=== PATIENT | female | born 1970 | race Caucasian/White ===

== ENCOUNTER → 2024-03-04 14:14 | Outpatient (REF) | payer BC, SELFPAY | LOC: WDC 14:14 | PROVIDERS: ATTENDING PHYSICIAN Family Medicine | DX: Z12.31 Encounter for screening mammogram for malignant neoplasm of breast (principal) | CPT/HCPCS: 77063; 77067 ==

== ENCOUNTER → 2024-07-14 13:38 | Outpatient (REF) | payer BC, SELFPAY | LOC: RCS 13:38 | PROVIDERS: ATTENDING PHYSICIAN Family Medicine | DX: G25.2 Other specified forms of tremor (principal) | CPT/HCPCS: 93005 ==

== ENCOUNTER → 2024-08-03 09:48 | Outpatient (REF) | payer BC, SELFPAY | LOC: HWRAD 09:48 | PROVIDERS: ATTENDING PHYSICIAN Family Medicine | DX: R79.89 Other specified abnormal findings of blood chemistry (principal); Z78.9 Other specified health status | CPT/HCPCS: 76700 ==

== ENCOUNTER → 2025-04-18 13:26 | Outpatient (REF) | payer BC, SELFPAY | LOC: HWRAD 13:26 | PROVIDERS: ATTENDING PHYSICIAN Obstetrics & Gynecology; FAMILY PHYSICIAN Family Medicine | DX: Z12.31 Encounter for screening mammogram for malignant neoplasm of breast (principal) | CPT/HCPCS: 77063; 77067 ==